=== PATIENT | female | born 2000 | race African-American/Black ===

== ENCOUNTER 2024-06-26 21:01 | Emergency (ER) | payer MEDICAID ==
[~2024-06-26] VITALS: Ht 170.2 cm; Wt 82.0 kg
[~2024-06-26 21:01] MED LIST: ALBUTEROL
[2024-06-26 21:43] VITALS: O2SAT 99
[2024-06-26] MEDS: ONDANSETRON HCL 4MG/2ML INJ IV ONE (22:17)
[2024-06-26] MEDS: SODIUM CHLORIDE 0.9% 1,000 ML IV ONE (22:17)
[2024-06-26] MEDS: MORPHINE SULFATE 4 MG/ML INJ (FOR IV/IM USE) IV ONE (22:17)
[2024-06-26 22:18] VITALS: TEMP 36.9
[2024-06-26] MEDS: LORAZEPAM 2MG/ML INJ IV ONE (22:34)
[2024-06-26 22:41] LABS: BASOPHILS % 0.4 % (0.0-2.0); DIFFERENTIAL COMMENT 0; EOSINOPHILS % 1.2 % (0.0-5.0); HEMATOCRIT. 35.4 % (36.0-48.0); HEMOGLOBIN. 11.2 g/dL (12.0-16.0); LYMPHOCYTES % 43.2 % (20.0-50.0); MEAN CORPUSCULAR HEMOGLOBIN 24.6 pg (28.0-32.0); MEAN CORPUSCULAR HGB CONC 31.7 g/dL (31.0-37.0); MEAN CORPUSCULAR VOLUME 77.6 fL (81.0-99.0); MONOCYTES % 9.9 % (2.0-8.0); NEUTROPHILS % 45.3 % (40.0-76.0); PLATELET 319 x1000/uL (130-400); RED BLOOD CELL COUNT 4.56 mill/uL (4.2-5.4); RED CELL DISTRIBUTION WIDTH 17.1 % (11.6-14.6); WHITE BLOOD COUNT 9.9 x1000/uL (4.5-11.0)
[2024-06-26 22:42] LABS: PROTHROMBIN TIME 10.8 sec (9.6-11.0)
[2024-06-26 22:47] LABS: CARBON DIOXIDE 19 mEq/L (21-32); CHLORIDE 104 mEq/L (98-107); POTASSIUM 2.9 mEq/L (3.5-5.1); SODIUM 138 mEq/L (136-145)
[2024-06-26 22:48] LABS: CALCIUM 9.7 mg/dL (8.7-10.4)
[2024-06-26 22:52] LABS: CREATININE 0.6 mg/dL (0.6-1.0)
[2024-06-26 22:53] LABS: GLUCOSE 140 mg/dL (70-105); UREA NITROGEN BLOOD 6 mg/dL (9-23)
[2024-06-26 22:54] LABS: ALANINE AMINOTRANSFERASE 13 IU/L (10-49); ALBUMIN 4.2 g/dL (3.2-4.8); ASPARTATE AMINOTRANSFERASE 17 IU/L (<34)
[2024-06-26 22:55] LABS: BILIRUBIN DIRECT 0.1 mg/dL (<=3.0); BILIRUBIN TOTAL 0.3 mg/dL (0.1-1.0); PROTEIN TOTAL 7.4 g/dL (6.0-8.3)
[2024-06-26] MEDS: HYDROMORPHONE HCL/PF 2MG/ML INJ IV ONE (23:31)
[2024-06-27] MEDS: KCL 10MEQ/50ML PREMIX 50 ML IV ONE (00:30)
[2024-06-27] MEDS: POTASSIUM CHLORIDE 20MEQ TABLET SR PO ONE (00:30)
[2024-06-27] MEDS ORDERED: ONDA-239 PO (01:48)
[2024-06-27 03:49] VITALS: BP 106/73; PULSE 80; RESP 18; O2SAT 100
== END 2024-06-27 03:49 | disposition home or self-care (01) ==
LOC: ER 21:01 → EDBEDREQ 06-27 01:45 → ER 06-27 03:49
DX: O03.9 Complete or unspecified spontaneous abortion without complication (principal); R10.2 Pelvic and perineal pain; E87.6 Hypokalemia
CPT/HCPCS: 80076; 80048; 84702; 85025; 85610; 36415; 76801; 76817; 96375; 99285; 86850; 86900; 86901; 96365; J2060; J2405; J1171; J2270; J7030; Z7610; J3480; 99284

== ENCOUNTER 2024-11-10 11:22 | Inpatient (IN) | payer SELFPAY ==
[~2024-11-10] VITALS: Ht 175.3 cm; Wt 81.6 kg
[~2024-11-10 11:22] MED LIST changes: +ONDA-239 PO
[2024-11-10 11:26] VITALS: O2SAT 98
[2024-11-10 12:31] LABS: BASOPHILS % 1.0 % (0.0-2.0); EOSINOPHILS % 1.2 % (0.0-5.0); HEMATOCRIT. 33.2 % (36.0-48.0); HEMOGLOBIN. 10.4 g/dL (12.0-16.0); LYMPHOCYTES % 36.2 % (20.0-50.0); MEAN PLATELET VOLUME 9.4 fl (7.4-10.4); MONOCYTES % 5.2 % (2.0-8.0); NEUTROPHILS % 56.4 % (40.0-76.0); PLATELET 292 x1000/uL (130-400); RED BLOOD CELL COUNT 5.26 mill/uL (4.2-5.4); RED CELL DISTRIBUTION WIDTH 25.4 % (11.6-14.6)
[2024-11-10] MEDS: SODIUM CHLORIDE 0.9% 1,000 ML IV ONE (12:34)
[2024-11-10] MEDS: METOCLOPRAMIDE HCL 10MG/2ML VIAL IV ONE (12:35)
[2024-11-10 12:37] LABS: ADD RBC MORPHOLOGY YES
[2024-11-10 12:49] LABS: CREATININE 0.8 mg/dL (0.6-1.0); UREA NITROGEN BLOOD 10 mg/dL (9-23)
[2024-11-10 12:51] LABS: ASPARTATE AMINOTRANSFERASE 23 IU/L (<34); BILIRUBIN DIRECT 0.3 mg/dL (<=3.0); BILIRUBIN TOTAL 0.7 mg/dL (0.1-1.0); PROTEIN TOTAL 7.8 g/dL (6.0-8.3)
[2024-11-10 13:15] LABS: HCG SCREEN NEGATIVE
[2024-11-10 13:29] LABS: PLATELET ESTIMATE NORMAL
[2024-11-10] MEDS ORDERED: ONDANSETRON HCL 4MG/2ML INJ IV PRN (14:15)
[2024-11-10] MEDS ORDERED: IPRATROPIUM/ALBUTEROL 0.5-3(2.5)MG/3ML NEB HHN PRN (14:15)
[2024-11-10] MEDS ORDERED: GUAIFENESIN 200MG/10ML SUGAR FREE UDC PO PRN (14:30)
[2024-11-10] MEDS ORDERED: ACETAMINOPHEN 325MG TABLET PO PRN ×2 (14:30)
[2024-11-10] MEDS ORDERED: DOCUSATE SODIUM 100MG CAPSULE PO PRN (14:30)
[2024-11-10] MEDS ORDERED: MAGNESIUM/ALUMINUM HYDROXIDE/SIMETHICONE 30ML UDC PO PRN (14:30)
[2024-11-10] MEDS ORDERED: KETOROLAC 15MG/ML VIAL IV PRN (14:30)
[2024-11-10] MEDS ORDERED: CLONIDINE 0.1MG TABLET PO PRN (14:30)
[2024-11-10 15:05] LABS: INR 1.0
[2024-11-10 15:22] LABS: FOLIC ACID (FOLATE) SERUM > 20.00 ng/mL (>5.38)
[2024-11-10 15:23] LABS: VITAMIN B12 SERUM 485 pg/mL (211-911)
[2024-11-10 16:00] VITALS: BP 106/56; PULSE 71; RESP 14; TEMP 36.6; O2SAT 99
[2024-11-10 16:07] VITALS: BP 106/56; PULSE 71; RESP 14; TEMP 36.6404
[2024-11-10] MEDS ORDERED: ENOXAPARIN 40MG/0.4ML SYR SUBCUT SCH (17:00)
[2024-11-10] MEDS: SUCRALFATE 1G TABLET PO SCH (17:13)
[2024-11-10] MEDS: DEXT 5%/LACTATED RINGERS 1,000 ML IV SCH (17:13)
[2024-11-10] MEDS: PANTOPRAZOLE SODIUM 40 MG/VIAL IV SCH (17:23)
[2024-11-10 19:20] LABS: HEPATITIS C AB NON REACTIVE (Neg) (Negative)
[2024-11-10 20:00] VITALS: BP 102/60; PULSE 68; RESP 18; TEMP 36.7; O2SAT 100
[2024-11-11] MEDS ORDERED: MULTIVITAMINS,THER W-MINERALS TABLET PO SCH (09:00)
== END 2024-11-10 21:37 | disposition left against medical advice (07) | DRG 249 ==
LOC: ER 11:22 → 7EST 13:36 → EDBEDREQ 13:38 → EDBEDREQTM 13:38 → ENRESERV 14:32
PROVIDERS: ADMIT Internal Medicine; ATTEND Internal Medicine
DX: A08.4 Viral intestinal infection, unspecified (principal); D50.9 Iron deficiency anemia, unspecified; J45.909 Unspecified asthma, uncomplicated; Z53.29 Procedure and treatment not carried out because of patient's decision for other reasons
CPT/HCPCS: 36415; 74018; 80048; 80076; 82607; 82728; 82746; 83540; 83550; 83735; 84145; 84703; 85025; 85044; 86705; 87340; 99285; A4606; J2470; J2765; J7030